=== PATIENT | male | born 1970 | race Caucasian/White ===

== ENCOUNTER → 2020-06-17 07:06 | Outpatient (CLI) | payer OTHER, SELFPAY ==
--- NOTE | 2020-06-17 07:23 | MRI_ITS ---
STUDY: MRI RIGHT KNEE REASON FOR EXAM: Lateral and posterior right knee pain after twisting injury. TECHNIQUE: Standardized fat and water weighted pulse sequences were obtained in all 3 orthogonal planes. COMPARISON: None. FINDINGS: Normal medial meniscus. Normal hyaline cartilage of the medial femorotibial compartment. Normal medial femoral condyle and tibial plateau. Normal medial collateral ligamentous complex (MCL). Normal distal semimembranosus, gracilis and semitendinosus tendons. There is a small subtle horizontal tear of the superior articular surface of the posterior horn/body junction lateral meniscus (proton-density sagittal images 11, 12) with a small parameniscal cyst (T2 coronal images 13-16). There is also a very small radial tear at the anterior horn/body junction lateral meniscus (T2 coronal image 14; T2 sagittal image 6; proton-density coronal image 14). Normal hyaline cartilage of the lateral femorotibial compartment. Normal lateral femoral condyle and tibial plateau. Normal proximal tibiofibular articulation. Normal lateral collateral (fibular) ligament. Normal popliteus tendon. Normal biceps femoris tendon. Normal anterior cruciate ligament (ACL). Normal posterior cruciate ligament (PCL). Normal congruent patellofemoral articulation. Normal hyaline cartilage of the patellofemoral compartment. Normal medial and lateral patellar retinaculum. Normal visualized quadriceps tendon. Normal patellar tendon. Normal Hoffa''s fat pad. There is a small joint effusion. There is a thin medial patellar plica. There is a very small popliteal cyst (T2 sagittal images 17-19). The otherwise visualized osseous structures are unremarkable. MRI/Lower Ext Joint Only (Routine) IMPRESSION: Small lateral meniscal tear. Small joint effusion. Very small popliteal cyst. Electronically Signed: Sharath De Leon MD at 9:47 EDT Tel , Service support ,
== END ==
DX: S83.281A Other tear of lateral meniscus, current injury, right knee, initial encounter (principal); X50.1XXA Overexertion from prolonged static or awkward postures, initial encounter
CPT/HCPCS: 73721

== ENCOUNTER 2021-06-03 21:19 | Emergency (ER) | payer OTHER, SELFPAY ==
[2021-06-03 21:19] VITALS: BP 162/115; PULSE 110; RESP 15; TEMP 37.1; O2SAT 97; BMI 25.4
--- NOTE | 2021-06-03 21:39 | EDS_ITS ---
HPI <GLENROY Petersen - Last Filed: 06/03/21 22:27> History of Present Illness HPI Narrative: 51-year-old [id number] male presents with dog bite to his right hand. His friend's dog bit him about an hour ago. He has puncture wounds in the webspace of the right hand between his thumb and index finger. Bleeding is controlled. No weakness, numbness, or tingling. He states the dog shots are up-to-date. His last tetanus is unknown. Chief Complaint: Bite ROS <GLENROY Petersen - Last Filed: 06/03/21 22:27> ROS ED ROS Narrative Constitutional: Negative for fever, chills, malaise. Eyes: Negative for visual change. ENT: Negative for sore throat, rhinorrhea. CVS: Negative for chest pain, syncope. Respiratory: Negative for shortness of breath. GI: Negative for nausea, vomiting. : Negative for dysuria. Neuro: Negative for motor/sensory dysfunction. Skin: Positive for wound. Negative for rash, abscess. Musc: Negative for joint pain, swelling, trauma. Heme: Negative for easy bruising, bleeding, lymphadenopathy. PFSH <GLENROY Petersen - Last Filed: 06/03/21 22:27> PFSH Home Medications amitriptyline 75 mg PO QHS 03/22/15 [History Last Taken Unknown] cephalexin 500 mg PO Q6 #40 capsule 03/22/15 [Rx Last Taken Unknown] divalproex 500 mg PO TIDCM 03/22/15 [History Last Taken Unknown] prochlorperazine maleate [Compazine] 5 mg PO TID 03/22/15 [History Last Taken Unknown] propranolol 10 mg PO TID 03/22/15 [History Last Taken Unknown] sulfamethoxazole-trimethoprim [Bactrim DS] 1 tab PO BID 7 Days #14 tab 06/03/21 [Rx Last Taken Unknown] Allergy/AdvReac Type Severity Reaction Status Date / Time Penicillins Allergy Itching Verified 06/03/21 21:23 TAPE AdvReac Hives Uncoded 03/22/15 11:00 Social History Smoking Status: Never smoker EXAM <GLENROY Petersen Last Filed: 06/03/21 22:27> Physical Exam Narrative Exam Narrative: CONST: Patient sitting in no acute distress. EYES: Normal inspection. NECK: Normal inspection. RESP: No respiratory distress, CTAB. CVS: Regular rate and rhythm, no murmur, no gallop. SKIN: ~ 1 cm puncture wound on the dorsal webspace between right thumb and index finger, a second smaller superficial laceration on the dorsum of the hand. 0.5 cm linear superficial laceration on the palmar aspect of the webspace. No bleeding or foreign bodies present. EXTREMITIES: Normal appearance, full range of motion of the hand and digits, motor and sensory function intact in median/ulnar/radial distributions, 2+ radial pulse and capillary refill less than 2 seconds. NEURO: Oriented x4. PSYCH: Normal affect. Const Vital Signs: 06/03/21 21:19 Temperature 98.8 F Temperature Source Temporal Pulse Rate 110 H Respiratory Rate 15 Blood Pressure 162/115 H Blood Pressure Mean 130 Pulse Ox 97 Oxygen Delivery Method Room Air <Dr. Ad Espitia MD - Last Filed: 06/03/21 22:28> Physical Exam Const Vital Signs: 06/03/21 21:19 Temperature 98.8 F Temperature Source Temporal Pulse Rate 110 H Respiratory Rate 15 Blood Pressure 162/115 H Blood Pressure Mean 130 Pulse Ox 97 Oxygen Delivery Method Room Air MDM <GLENROY Petersen - Last Filed: 06/03/21 22:27> [facility] MDM Narrative Medical decision making narrative: Patient presents with a dog bite to his right hand. He has 3 puncture wounds. The largest is on the dorsal webspace between the thumb and index finger. He also smaller lacerations on the dorsum of the hand and the palmar aspect of the webspace but these do not require closure. The larger dorsal webspace laceration requires closure and was anesthetized with 2 cc of 1% lidocaine. All wounds were scrubbed with soap and sterile saline and then copiously irrigated with sterile saline. The webspace laceration was closed with 2 simple interrupted sutures of 4-0 Ethilon. Tetanus was updated. He states he has a severe penicillin allergy so he was prescribed doxycycline and the first dose was given here. He was counseled to have the stitches removed in 7 to 10 days and to return immediately if he develops any sign of infection. Patient was agreeable to this plan and discharged in stable condition. 1. Dog bite, right hand 2. Laceration of right hand?sutured <Dr. Ad Espitia MD - Last Filed: 06/03/21 22:28> MDM MDM Narrative Medical decision making narrative: Patient seen with her physician mechanic's assistant. Dog bite right hand webspace. Patient has full flexion-extension. Normal touch sensation. No signs of infection. Wound closed. He has a true allergy to penicillin so he placed on Bactrim. Wound instructions. Discharge Plan Triage Chief Complaint: Bite ED Provider: Nissa Jerome Dx/Rx/DC Orders Clinical Impression: Dog bite of multiple sites of right hand and fingers Instructions: ED Dog Bite Prescriptions: New sulfamethoxazole-trimethoprim [Bactrim DS] 800-160 mg tablet 1 tab PO BID 7 Days Qty: 14 RF: 0 No Action amitriptyline 75 MG tablet 75 mg PO QHS RF: 0 prochlorperazine maleate [Compazine] 5 MG tablet 5 mg PO TID RF: 0 propranolol 10 MG tablet 10 mg PO TID RF: 0 divalproex 125 MG tablet 500 mg PO TIDCM RF: 0 cephalexin 500 MG capsule 500 mg PO Q6 Qty: 40 RF: 0 [facility] Referrals: [facility] [Primary Care Provider] - Activity Restrictions/Additional Instructions: You can gently clean the area with soap and water. Take Bactrim twice a day as prescribed. If you develop any signs of infection return to the ER. Your stitches will need removed in 7 to 10 days by your physician. Disposition Disposition: Home, Self Care
[2021-06-03] MEDS: Diphth,Pertuss(Acell),Tet Vac 0.5 ML Vial IM (22:12)
[2021-06-03] MEDS: Lidocaine 1% (20 ml mdv) 20 ML Vial INFILT (22:13)
[2021-06-03] MEDS: Smz/Tmp Ds Tablet 1 TABLET PO (22:31)
[2021-06-03 22:34] VITALS: BP 153/80; PULSE 78; RESP 16
[2021-06-03 22:37] VITALS: RESP 16
== END 2021-06-03 22:37 | disposition home or self-care (01) ==
PROVIDERS: Emergency Provider Physician Assistant; Visit Provider Physician Assistant
DX: S61.451A Open bite of right hand, initial encounter (principal); W54.0XXA Bitten by dog, initial encounter; Z23 Encounter for immunization
CPT/HCPCS: 12001; 90471; 90715; 99284

== ENCOUNTER 2023-04-10 09:13 | Emergency (ER) | payer OTHER, SELFPAY ==
[2023-04-10 09:14] VITALS: BP 168/110; PULSE 75; RESP 14; TEMP 37.1; O2SAT 98; BMI 26.5
--- NOTE | 2023-04-10 09:46 | VDLE_ITS ---
Reason For Study: Right leg pain RIGHT GSV is normal. CFV is compressible, spontaneous, phasic, competent and demonstrates normal augmentation. FV is compressible, spontaneous, phasic, competent and demonstrates normal augmentation. POP V is compressible, spontaneous, phasic, competent and demonstrates normal augmentation. T/P Trunk is compressible. PTV is compressible. RT PerV is compressible. Procedure This is a venous duplex using B-mode, color flow and spectral Doppler. Exam performed portable in ED. A preliminary report was called and/or faxed to Dr. Iniguez. VL/Venous Duplex US, Unilateral Interpretation Summary There is no evidence of right lower extremity deep vein thrombosis. Right great saphenous vein appears patent and compressible segmentally. Ordering Physician: Corrina Iniguez Referring Physician: [facility] Performed By: Melissa Jiang RVT
--- NOTE | 2023-04-10 09:47 | ED.VIS.LOWEX ---
HPI History of Present Illness Chief Complaint: Lower Extremity Injury Detail of Chief Complaint: Pain to right lower extremity Informant: patient Narrative Narrative: Patient presents to the emergency department with complaint of pain to his right lower extremity that started 2 days ago. He denies any injury. He states he woke up with more pain around 1 AM and felt like his foot was cool to the touch. He also noticed a lump to the lateral aspect of the foot. Patient having pain all the way up the calf to behind the right knee. Denies recent travel or surgery. No prior history of PE or DVT. He denies any chest pain or shortness of breath. He normally gets his health care at the [place]. [facility] Medical History (Updated 04/10/23 @ 10:[address] Corrina Iniguez, ) HLD (hyperlipidemia) HTN (hypertension) Post traumatic stress disorder (PTSD) Home Medications amitriptyline 75 mg tablet 75 mg PO QHS 03/22/15 [History Last Taken Unknown] divalproex 125 mg tablet,delayed release 500 mg PO TIDCM SEIZURES 03/22/15 [History Last Taken Unknown] prochlorperazine maleate 5 mg tablet (Compazine) 5 mg PO TID NAUSEA/VOMITTING 03/22/15 [History Last Taken Unknown] propranolol 10 mg tablet 10 mg PO TID BLOOD PRESSURE 03/22/15 [History Last Taken Unknown] sulfamethoxazole 800 mg-trimethoprim 160 mg tablet (Bactrim DS) 1 tab PO BID ANTIBIOTIC 7 days #14 tabs 06/03/21 [Rx Last Taken Unknown] amitriptyline 50 mg tablet mg 04/10/23 [History Last Taken Unknown] cephalexin 500 mg capsule 500 mg PO Q6H ANTIBIOTIC 04/10/23 [History Last Taken Unknown] chlorthalidone 25 mg tablet 12.5 mg PO DAILY HIGH BLOOD PRESSURE 04/10/23 [History Last Taken Unknown] cholecalciferol (vitamin D3) 50 mcg (2,000 unit) tablet 50 mcg PO DAILY SUPPLEMENT 04/10/23 [History Last Taken Unknown] simvastatin 40 mg tablet 20 mg PO DAILY CHOLESTEROL 04/10/23 [History Last Taken Unknown] Allergy/AdvReac Type Severity Reaction Status Date / Time Penicillins Allergy Itching Verified 04/10/23 09:14 adhesive tape AdvReac Hives Verified 04/10/23 09:14 Surgical History (Updated 04/10/23 @ 09:50 by Daysi Dockery) H/O abdominal surgery Hx of appendectomy Social History Smoking Status: Never smoker ROS ROS ED Review of Systems ROS Unobtainable: other Constitutional Constitutional ED: Reports lethargy; Denies chills, fever(s), sweats or weight loss Eyes Eyes: Denies blurry vision, change in vision or diplopia ENT ENT ED: Denies rhinorrhea or sore throat Cardiovascular Cardiovascular: Denies chest pain, orthopnea or racing heartbeat Respiratory/Chest Respiratory/Chest: Denies cough, dyspnea, dyspnea on exertion, orthopnea or sputum Gastrointestinal Gastrointestinal: Denies abdominal pain, diarrhea, nausea or vomiting Genitourinary Genitourinary ED: Denies dysuria, hematuria or urinary frequency Musculoskeletal Musculoskeletal: Reports other Details: Right foot/leg pain ; Denies arthralgias, back pain, myalgias or neck pain Integumentary Denies abscess, Abrasions or rash Neurologic Neurologic: Denies headache(s) or weakness Psychiatric Psychiatric: Denies anxiety, depression or suicidal thoughts Endocrine Endocrinology: Denies polydipsia, polyphagia or polyuria Hematologic/Lymphatic Hematologic/Lymphatic: Denies easy bleeding, easy bruising or lymphadenopathy Allergic/Immunologic Allergic/Immunologic ED: Denies mouth swelling, tongue swelling or urticaria EXAM Physical Exam Const Vital Signs: 04/10/23 09:14 04/10/23 11:17 Temperature 98.7 F Temperature Source Temporal Pulse Rate 75 89 Respiratory Rate 14 16 Blood Pressure 168/110 H 152/114 H Blood Pressure Mean 129 126 Pulse Ox 98 98 Oxygen Delivery Method Room Air Positive well nourished and well developed General Appearance ED: well developed and NAD HEENT Reports TM's clear and moist mucous membranes normocephalic and atraumatic; Negative for trauma or tenderness Tympanic Membrane ED: Yes TM's clear Eyes PERRL and EOMs intact bilaterally General Eye ED: Negative for pale conjunctiva or scleral icterus Neck no lymphadenopathy, supple and no JVD General: Negative for tenderness Chest Wall inspection of chest normal and palpation of chest normal Chest: Negative for tenderness Resp normal respiratory effort and clear to auscultation bilaterally Effort and Inspection: Negative for respiratory distress or pain with movement Auscultation: Negative for rhonchi, wheezes or diminished lung sounds Cardio regular rate, regular rhythm, S1 normal heart sound, S2 normal heart sound and no murmurs Peripheral Pulses: pulses 2+ throughout GI normal to inspection, nondistended, normoactive bowel sounds, soft to palpation, non-tender, non-distended and no masses Back/Spine no CVA tenderness and no thoracic nor lumbar tenderness Extremity Extremity Narrative: Right lower extremity-patient has diffuse tenderness over the proximal lateral aspect of the foot just medial to the lateral malleolus onto the ankle mortise. There is no erythema or warmth. No significant soft tissue swelling noted. He does have a positive Homans' sign. He has some diffuse tenderness over the calf. The right foot is somewhat cool to the touch but cap refill is less than 3 seconds. He has normal dorsal pedal and posterior tibial pulses bilaterally. Normal popliteal pulses. General Extremety ED: Negative for edema General Extremity: Negative for edema Neuro oriented x3, CN's II-XII intact bilaterally, no sensory deficits noted and gait normal Sensorium / Orientation: awake, alert, oriented to person, oriented to place and oriented to time Motor Exam: strength 5/5 throughout and strength abnormal Psych mental status grossly normal Skin no rashes or lesions noted and no wounds MDM MDM MDM Narrative Medical decision making narrative: Patient presents with atraumatic pain in the right foot radiating to behind the knee. Patient had an x-ray of the foot that was negative for fracture. Patient has normal pulses on exam. I did do a venous Doppler that was negative for DVT. This point etiology of his pain is unclear. Clinically he looks well. He does not anything for pain. I did give him an Nayan wrap. He refused crutches. Will refer to the [place] and podiatry for follow-up. Radiography Diagnostic Testing: Clinical Impression(s) from Imaging Studies Venous Doppler Study 04/10/23 09:46 Interpretation Summary There is no evidence of right lower extremity deep vein thrombosis. Right great saphenous vein appears patent and compressible segmentally. Ordering Physician: Corrina Iniguez Referring Physician: [facility] Performed By: Melissa Jiang RVT Foot X-Ray 04/10/23 09:55 IMPRESSION: No acute abnormality is seen. Electronically Signed: Lazaro Masterson MD at 10:40 EST , Three-view x-rays of the right foot obtained interpreted by myself as no evidence of fracture or dislocation. Radiology in agreement. Discharge Plan Triage Chief Complaint: Lower Extremity Injury ED Provider: Corrina Iniguez Dx/Rx/DC Orders Clinical Impression: Foot pain, right Instructions: ED Pain, Acute, Uncertain Cause Prescriptions: No Action amitriptyline 75 MG tablet 75 mg PO QHS prochlorperazine maleate [Compazine] 5 MG tablet 5 mg PO TID propranolol 10 MG tablet 10 mg PO TID divalproex 125 MG tablet 500 mg PO TIDCM sulfamethoxazole-trimethoprim [Bactrim DS] 800-160 mg tablet 1 tab PO BID 7 Days Qty: 14 0RF chlorthalidone 25 mg tablet 12.5 mg PO DAILY amitriptyline 50 mg tablet simvastatin 40 mg tablet 20 mg PO DAILY cholecalciferol (vitamin D3) 50 mcg (2,000 unit) tablet 50 mcg PO DAILY cephalexin 500 MG capsule 500 mg PO Q6H Primary Care Provider: [facility] Referrals: Anand Pena DPM [Med Staff - Active Staff] - 3-5 Days [facility] [Primary Care Provider] - 3-5 Days Disposition Disposition: Home, Self Care Discharge Date/Time: 04/10/23 11:20
--- NOTE | 2023-04-10 09:55 | RAD_ITS ---
STUDY: X-RAY - RIGHT FOOT CLINICAL: Male, 53 years old. Pain at the base of the fifth metatarsal. TECHNIQUE: 3 view(s) of the foot. COMPARISON: None. FINDINGS: There is an enthesophyte involving the posterior superior calcaneus at the site of insertion of the Achilles tendon. Talar neck the Normal visualized subtalar, talonavicular, calcaneocuboid, tarsal and tarsometatarsal articulations. Normal metatarsi. Normal metatarsophalangeal joint of the great toe. Normal tibial and fibular sesamoid bones. Normal interphalangeal joint of the great toe. Normal phalanges of the great toe. Normal second through fifth metatarsophalangeal joints. Normal interphalangeal joints and phalanges of the lesser toes. The soft tissue structures are unremarkable. RAD/Foot min 3 Views IMPRESSION: No acute abnormality is seen. Electronically Signed: Lazaro Masterson MD at 10:40 EST ,
[2023-04-10 11:17] VITALS: BP 152/114; PULSE 89; RESP 16; O2SAT 98
--- NOTE | 2023-04-10 11:18 | ED.RN ---
PT EDUCATED ON DISCHARGE INSTRUCTIONS AND FOLLOW UP. PT REPORTS THAT HE IS LEAVING [facility] AND [facility]. PT REPORTS HE WILL TAKE HIS BLOOD PRESSURE MEDICATION THAT HE IS PRESCRIBED BECAUSE HE FORGOT TO THIS MORNING.
== END 2023-04-10 11:20 | disposition home or self-care (01) ==
PROVIDERS: Emergency Provider Emergency Medicine; Visit Provider Emergency Medicine
DX: M79.671 Pain in right foot (principal); E78.5 Hyperlipidemia, unspecified; I10 Essential (primary) hypertension; Z79.899 Other long term (current) drug therapy; Z90.49 Acquired absence of other specified parts of digestive tract
CPT/HCPCS: 73630; 93971; 99282

== ENCOUNTER 2025-03-16 15:25 | Emergency (ER) | payer OTHER, SELFPAY ==
[2025-03-16 15:26] VITALS: BP 152/120; PULSE 77; RESP 18; TEMP 35.9; O2SAT 98; BMI 25.6
--- NOTE | 2025-03-16 16:58 | ED.RN ---
pt upset that he has not been taken back to room. pulled off bracelet and said send any orders to [facility]
== END 2025-03-16 17:00 | disposition left against medical advice (07) ==
LOC: ED 17:01
DX: R10.9 Unspecified abdominal pain (principal)